=== PATIENT | male | born 1980 | race Two or more races ===

== ENCOUNTER 2020-07-15 21:11 | Emergency (ER) | payer OTHER, SELFPAY ==
[~2020-07-15] VITALS: Ht 172.7 cm; Wt 89.8 kg
--- NOTE | 2020-07-15 21:15 | NUR ---
PT BIBRA 89 FROM HOME C/O OVERDOSE ON NORCO. PER PT HE REC'D 6-7 TABS OF NORCO 10. PT PLACED IN BED 3 ON CARIAC MONITOR AND PULSE OX. VSS. PT ABLE TO SPEAK IN FULL SENTENCES. PLACED ON NC, SAT 98%. NO ACUTE DISTRESS NOTED. VSS. AWITING FOR PA ORDERS.
[2020-07-15] MEDS ORDERED: ONDANSETRON HCL/PF 4 MG/2 ML VIAL ONE (21:30)
[2020-07-15] MEDS ORDERED: ONDANSETRON HCL/PF 4 MG/2 ML VIAL IVP ONE (21:30)
[2020-07-15] MEDS ORDERED: IV NS 0.9% 1,000 ML BAG IV ONE (21:30)
--- NOTE | 2020-07-15 21:45 | NUR ---
SENIOR NET ENGINEER AT BEDSIDE FOR LABS
[2020-07-15 21:58] LABS: BASOPHILS # (AUTO) 0.1 /CMM (0.0-0.2); BASOPHILS % (AUTO) 0.4 % (0.0-2.0); EOSINOPHILS % (AUTO) 3.3 % (0.0-6.0); HEMATOCRIT 46 % (39-51); HEMOGLOBIN 15.5 g/dL (13.5-17.5); LYMPHOCYTES # (AUTO) 4.8 /CMM (0.8-4.8); LYMPHOCYTES % (AUTO) 33.6 % (20.0-44.0); MEAN CORPUSCULAR HGB CONC 34 g/dl (31.0-36.0); MEAN CORPUSCULAR VOLUME 86 fL (80-96); MONOCYTES # (AUTO) 0.7 /CMM (0.1-1.30); MONOCYTES % (AUTO) 4.6 % (2.0-12.0); NEUTROPHILS # (AUTO) 8.3 /CMM (1.8-8.9); NEUTROPHILS % (AUTO) 58.1 % (43.0-81.0); PLATELET COUNT (AUTO) 245 /CMM (150-450); RED BLOOD CELL COUNT(AUTO) 5.35 MIL/uL (4.5-6.0); WHITE BLOOD COUNT (AUTO) 14.3 K/uL (4.3-11.0)
--- NOTE | 2020-07-15 22:07 | NUR ---
PA AT BEDSIDE STARTING A IV LINE.
[2020-07-15 22:09] LABS: CALCIUM, SERUM 8.9 mg/dL (8.5-10.1); CARBON DIOXIDE 26 mmol/L (21-32); CHLORIDE 104 mmol/L (98-107); GLUCOSE 153 mg/dL (74-106); POTASSIUM 3.7 mmol/L (3.5-5.1); SODIUM SERUM 139 mmol/L (136-145); UREA NITROGEN, BLOOD 13 mg/dL (7-18)
[2020-07-15 22:15] LABS: ACETAMINOPHEN 0 ug/ml (10-30); ALANINE AMINOTRANSFERASE 59 U/L (12-78); ALBUMIN 3.7 g/dL (3.4-5.0); ALCOHOL, BLOOD < 3 mg/dL (0-0); ALKALINE PHOSPHATASE 56 U/L (46-116); ASPARTATE AMINOTRANSFERASE 26 U/L (15-37); BILIRUBIN,TOTAL 0.2 mg/dL (0.2-1.0); TOTAL PROTEIN, SERUM 7.4 g/dL (6.4-8.2)
[2020-07-16 02:27] LABS: B-TYPE NATRIURETIC PEPTIDE 37 PG/ML (0-125)
[2020-07-16 02:29] LABS: ACETAMINOPHEN 0 ug/ml (10-30)
--- NOTE | 2020-07-16 04:05 | NUR ---
PT ABLE TO AMBULATE WITH STEADY GAIT. VSS. CALLED BROTHER TO BALANCE WEIGHER PT.
--- NOTE | 2020-07-16 04:19 | NUR ---
Patient discharged to home in stable condition. Written and verbal after care instructions given. Patient verbalizes understanding of instruction. IV removed. Catheter intact and site benign. Pressure and 4x4 applied to site. No bleeding noted.
[2020-07-16 05:05] VITALS: BP 121/75
== END 2020-07-16 05:05 | disposition home or self-care (01) ==
LOC: ER 21:12 → EDBD 21:12 → ER 07-16 05:05
DX: T40.2X1A Poisoning by other opioids, accidental (unintentional), initial encounter (principal); T39.1X1A Poisoning by 4-Aminophenol derivatives, accidental (unintentional), initial encounter; Y92.89 Other specified places as the place of occurrence of the external cause; F19.10 Other psychoactive substance abuse, uncomplicated; F17.290 Nicotine dependence, other tobacco product, uncomplicated; D72.829 Elevated white blood cell count, unspecified; R11.2 Nausea with vomiting, unspecified; R73.9 Hyperglycemia, unspecified; R03.0 Elevated blood-pressure reading, without diagnosis of hypertension; Z20.828 Contact with and (suspected) exposure to other viral communicable diseases; J98.11 Atelectasis; R09.89 Other specified symptoms and signs involving the circulatory and respiratory systems
CPT/HCPCS: 36415 ×2; 71045; 80048; 80076; 80299 ×2; 80320; 83880; 85025; 87426; 96361; 96374; 99284; C9803; J2405; J7030; G0480